=== PATIENT | male | born 1985 | race Caucasian/White ===

== ENCOUNTER → 2025-06-05 | Outpatient (CLI) | payer SELFPAY ==
--- NOTE | 2025-06-05 11:22 | ECHOD_ITS ---
Reason For Study Reason For Study: CRUZ Procedure This was a 2D Doppler, Color Flow transthoracic echocardiogram. Exam performed in department. Left Ventricle Normal LV size. The estimated ejection fraction is 55 %. No regional wall motion abnormalities noted. Right Ventricle Normal RV size. Normal systolic function. Atria Normal left atrium. Normal right atrium. Mitral Valve Normal mitral valve. Tricuspid Valve Normal tricuspid valve. Aortic Valve Trisinus/trileaflet aortic valve. Great Vessels Normal aortic root. Pericardium/Pleural No pericardial effusion. MMode/2D Measurements & Calculations LVIDd: 5.1 cm IVSd: 0.70 cm LVOT diam: 2.1 cm LVIDs: 3.6 cm LVPWd: 0.81 cm LVOT area: 3.5 cm2 RVDd: 4.8 cm FS: 30.5 % asc Aorta Diam: 3.2 cm LAV(MOD-bp): 27.8 ml LVAd ap4: 26.9 cm2 LAV(MOD-bp) Indexed: 15.4 ml/m2 LVLd ap4: 7.9 cm LAV(MOD-sp2): 31.2 ml EDV(MOD-sp4): 79.2 ml LAV(MOD-sp4): 24.8 ml EDV(sp4-el): 78.0 ml LVAs ap4: 16.6 cm2 LVLs ap4: 7.5 cm ESV(MOD-sp4): 32.5 ml ESV(sp4-el): 31.4 ml EF(MOD-sp4): 58.9 % EF(sp4-el): 59.7 % SV(MOD-sp4): 46.6 ml SV(MOD-sp2): 33.4 ml LVAd ap2: 24.7 cm2 LVLd ap2: 8.5 cm SI(MOD-sp4): 25.8 ml/m2 SI(MOD-sp2): 18.5 ml/m2 EDV(MOD-sp2): 61.7 ml EDV(sp2-el): 60.6 ml LVAs ap2: 14.9 cm2 LVLs ap2: 7.3 cm ESV(MOD-sp2): 28.3 ml ESV(sp2-el): 26.1 ml EF(MOD-sp2): 54.1 % SV(sp4-el): 46.5 ml Ao sinus diam: 3.[address] Junction: 2.8 cm LA A4 area: 11.6 cm2 LA dimension(2D): 2.5 cm RA A4 area: 16.7 cm2 TAPSE: 2.2 cm Time Measurements MV dec time: 0.27 sec Doppler Measurements & Calculations MV E max greyson: 44.6 cm/sec Lat Peak E' Greyson: 13.9 cm/sec Med Peak E' Greyson: 12.6 cm/sec MV A max greyson: 41.9 cm/sec E/E' lat: 3.2 E/E' med: 3.5 MV E/A: 1.1 Ao V2 max: 95.3 cm/sec LV V1 max: 84.9 cm/sec MV dec slope: 167.6 cm/sec2 Ao max P.6 mmHg LV V1 max P.9 mmHg Ao V2 mean: 71.5 cm/sec LV V1 mean P.6 mmHg Ao mean P.3 mmHg LV V1 mean: 59.2 cm/sec Ao V2 VTI: 20.6 cm LV V1 VTI: 17.1 cm AV (velocity ratio): 0.83 SHANTEL(I,D): 2.9 cm2 SHANTEL(V,D): 3.1 cm2 SV(LVOT): 59.8 ml PA V2 max: 88.4 cm/sec TR max greyson: 143.9 cm/sec TR max P.3 mmHg ECHO/Echo Complete Interpretation Summary Normal LV size. The estimated ejection fraction is 55 %. No regional wall motion abnormalities noted. The global longitudinal strain is borderline abnormal. The global longitudinal strain = -16.8% (abnormal). Structurally normal valves. Ordering Physician: Emigdio Mchugh Referring Physician: Emigdio Mchugh Performed By: Erin Rice RDCS
== END | disposition home or self-care (01) ==
PROVIDERS: PCP Physician Assistant; Referring Provider Physician Assistant; Visit Provider Physician Assistant
DX: R06.09 Other forms of dyspnea (principal)
CPT/HCPCS: 93306